=== PATIENT | female | born 1960 | race Hispanic/Latino ===

== ENCOUNTER 2023-03-15 07:58 | Day surgery (SDC) | payer OTHER ==
[2023-03-12 10:24] LABS: Absolute Lymphocytes (CBC) 1.3 K/uL (0.7-4.9); Hematocrit 37.7 % (36.0-45.0); Lymphocytes % 30.4 % (15.3-44.8); MPV 8.9 fL (7.6-11.3); RBC Red Blood Cell Count 3.85 M/uL (3.86-4.86)
[2023-03-12 10:31] LABS: Protime INR 0.94
--- NOTE | 2023-03-12 11:01 | RAD REPORT ---
EXAM DESCRIPTION: RAD - Chest Pa And Lat (2 Views) - 03/12/2023 10:16 am CLINICAL HISTORY: pre op for surgery Chest pain. COMPARISON: No comparisons FINDINGS: The lungs are clear. The heart is normal in size. No displaced fractures. IMPRESSION: No acute or concerning finding suspected.
--- NOTE | 2023-03-12 20:35 | EKG ---
Test Date: 2023-03-12 Test Time: 09:58:46 Project Archivist: JENNIFER MEASUREMENT RESULTS: Intervals: Rate: 59 VA: 156 QRSD: 80 QT: 418 QTc: 413 [place]: P: 69 VA: 156 QRS: 9 T: 57 INTERPRETIVE STATEMENTS: Sinus bradycardia Otherwise normal ECG Compared to ECG 11/14/2014 20:21:32 Sinus rhythm no longer present Electronically Signed On 03-12-23 20:32:41 CDT by Hugh Martins
[2023-03-15] MEDS ORDERED: Ringers Lactate 1,000 ML IV ONE (08:26)
[2023-03-15] MEDS ORDERED: CEFAZOLIN SODIUM 1 GM/VIAL ONE (08:27)
[2023-03-15] MEDS ORDERED: propofoL 200 MG/20 ML VIAL IV ONE (09:04)
[2023-03-15] MEDS ORDERED: ONDANSETRON 4 MG/2 ML VIAL ONE (09:05)
[2023-03-15] MEDS ORDERED: FENTANYL CITR 100 MCG/2 ML ONE (09:05)
[2023-03-15] MEDS ORDERED: LIDOCAINE 2% MPF 5 ML VIAL ONE (09:05)
[2023-03-15] MEDS ORDERED: NS 0.9% VIAL 30 ML ONE (09:05)
[2023-03-15] MEDS ORDERED: MIDAZOLAM HCL 2 MG/2 ML INJ ONE (09:05)
[2023-03-15] MEDS ORDERED: LIDOCAINE 1% MPF 30 ML VIAL ONE (09:09)
[2023-03-15] MEDS: BUPIVACAINE 0.25% PF 10 ML VIAL ONE ×2 (10:18→10:28)
[2023-03-15] MEDS ORDERED: CODEINE 30MG/APAP 300MG TAB ONE (11:43)
[2023-03-15 13:00] VITALS: TEMP 96.8
[2023-03-15 13:03] VITALS: BP 162/79; O2SAT 98
== END 2023-03-15 11:45 | disposition home or self-care (01) ==
LOC: OR 07:58
PROVIDERS: ATTEND Orthopaedic Surgery Sports Medicine
PROC: 01N50ZZ Release Median Nerve, Open Approach (ICD-10-PCS; principal; 2023-03-15 09:15)
DX: G56.01 Carpal tunnel syndrome, right upper limb (principal)
CPT/HCPCS: 93005; 85025; 80048; 36415; 85610; 85730; 71046; 64721; A4216; J2704; J2001 ×2; J2250; J3010; J2405; J7120; J0690